=== PATIENT | female | born 1995 | race Caucasian/White ===

== ENCOUNTER → 2021-05-20 12:35 | Outpatient (CLI) | payer OTHER, SELFPAY ==
--- NOTE | 2021-05-20 12:38 | DI.US.S_ITS ---
PROCEDURE: US OB <= 14 WEEKS FETUS INDICATIONS: INITIAL DATING VIABILITY OUTSIDE/PRIOR DATING DATA: Last menstrual period (LMP): March 16, 2021. LMP-based estimated date of delivery (REHAN): December 21, 2021. First dating scan (date and location): May 20, 2021. Estimated date of delivery (REHAN) from first dating scan: December 19, 2021. TECHNIQUE: Real-time scanning was performed of the fetus and maternal pelvic organs, with image documentation. Endovaginal scanning was also performed to better visualize the fetus and maternal ovaries. COMPARISON: None. FINDINGS: Embryo: Single living intrauterine gestation with estimated sonographic gestational age of approximately 9 weeks and 4 days based off crown-rump length measurement of 2.8 cm. Normal yolk sac. No perigestational hemorrhage. Heart rate: 163 beats per minute Measurement variability in dating: +/- 4 weeks by LMP, +/- 7 days by mean sac diameter (use before 6 weeks gestation if crown-rump length not able to be measured), +/- 5 days by crown-rump length (up to 8 weeks 6 days gestation), +/- 7 days by crown-rump length (up to 13 weeks 6 days gestation). Maternal organs: Ovaries demonstrate a left corpus luteal cyst. No suspicious ovarian or adnexal mass lesions. IMPRESSION: Single living intrauterine gestation with estimated sonographic gestational age of approximately 9 weeks and 4 days based off crown-rump length measurement. This correlates with estimated date of delivery of December 19, 2021 Recommend routine second trimester anatomic screening survey. Dictated by: Ramiro Méndez M.D. on 05/20/2021 at 14:36 Approved by: Ramiro Méndez M.D. on 05/20/2021 at 14:39
[2021-05-20 14:37] LABS: Add Manual Diff / Slide Review NO; Basophils Absolute Auto 0 /uL (0-100); Basophils Percent Auto 0.2 % (0-2); Eosinophils Absolute Auto 0 /uL (0-450); Eosinophils Percent Auto 0.3 % (2-4); Hematocrit 38.3 % (36-46); Hemoglobin 13.2 g/dL (12.0-16.0); Lymphocytes Absolute Auto 1900 /uL (1100-4500); Lymphocytes Percent Auto 20.9 % (25-40); Mean Corpuscular HGB Conc 34.5 % (30-36); Mean Corpuscular Hemoglobin 30.5 PG (26-34); Mean Corpuscular Volume 88.6 fL (80-100); Monocytes Absolute Auto 500 /uL (0-900); Neutrophils Absolute Auto 6500 /uL (1500-7000); Neutrophils Percent Auto 72.6 % (50-75); Platelet Count 235 X10^3/uL (150-400); Red Blood Cell Count 4.32 X10^6/uL (4.0-5.2); Red Cell Distribution Width 12.9 % (11.6-14.8); White Blood Cell Count 8.9 X10^3/uL (4.5-11.0)
[2021-05-20 14:53] LABS: Appearance Urine UA CLEAR; Bilirubin Urine UA NEGATIVE (NEGATIVE); Color Urine UA YELLOW; Glucose Urine UA NEGATIVE (Negative); Ketones Urine UA NEGATIVE (NEGATIVE); Leukocyte Esterase Urine UA NEGATIVE (NEGATIVE); Nitrite Urine UA NEGATIVE (Negative); Occult Blood Urine UA NEGATIVE (Negative); Protein Urine UA NEGATIVE (Negative); Urobilinogen Urine UA 0.2 E.U./dL (0.2)
[2021-05-20 15:28] LABS: Hepatitis B Surface Antigen NEGATIVE s/c (NEGATIVE); Rubella Antibody IgG > 350.0 IU/mL (>15)
[2021-05-20 15:45] LABS: HIV 1 & 2 Ab/Ag 4th Gen Combo NEGATIVE (NEGATIVE); Hep C Virus Ab w/Reflex Quant NEGATIVE s/c (NEGATIVE)
[2021-05-21 04:51] LABS: RPR Screen Non Reactive (Non Reactive)
[2021-05-21 09:26] LABS: Varicella IgG Antibody <135 index (Immune >165)
== END ==
PROVIDERS: PCP Nurse Practitioner; Referring Provider Family Medicine; Visit Provider Family Medicine
DX: Z34.81 Encounter for supervision of other normal pregnancy, first trimester (principal); Z3A.09 9 weeks gestation of pregnancy
CPT/HCPCS: 36415; 76801; 76817; 80055; 81003; 86787; 86803; 86850; 86900; 86901; 87086; 87389

== ENCOUNTER → 2021-07-14 16:13 | Outpatient (CLI) | payer OTHER, SELFPAY ==
[2021-07-16 20:07] LABS: AFP, Serum 33.6 ng/mL (.); Calc Gestational Age Ultrasound (.); Estriol, Free 1.02 ng/mL (.); Inhibin A, Dimeric 92.05 pg/mL (.); Inhibin A, MoM See interpretation. (.); Maternal Ethnicity Caucasian (.); Maternal Weight 150 lbs (.); Number of Fetuses No (.); OSBR Risk 1 IN 10000 (.); Results Report (.); Test Results See interpretation. (.); hCG, MoM See interpretation. (.); hCG, Serum 15221 mIU/mL (.)
== END ==
PROVIDERS: PCP Nurse Practitioner; Referring Provider Family Medicine; Visit Provider Family Medicine
DX: Z34.92 Encounter for supervision of normal pregnancy, unspecified, second trimester (principal); Z3A.14 14 weeks gestation of pregnancy
CPT/HCPCS: 36415; 82105; 82677; 84702; 86336

== ENCOUNTER → 2021-08-05 09:16 | Outpatient (CLI) | payer OTHER, SELFPAY ==
--- NOTE | 2021-08-05 09:17 | DI.US.S_ITS ---
PROCEDURE: US OB >= 14 WEEKS FETUS INDICATIONS: ANATOMY OUTSIDE/PRIOR DATING DATA: Last menstrual period (LMP): 03/16/2021. LMP-based estimated date of delivery (REHAN): 12/21/2021. First dating scan (date and location): 05/20/2021. Estimated date of delivery (REHAN) from first dating scan: 12/19/2021. The calculations are made using the ultrasound REHAN of 12/19/2021. TECHNIQUE: Real-time scanning was performed of the fetus, with image documentation and biometric measurements. COMPARISON: [facility], , OB <= 14 WEEKS FETUS, 05/20/2021, 13:15. FINDINGS: General: A single living intrauterine gestation is present. Presentation: Breech. Placenta: Placental position is anterior , without previa. Amniotic fluid index: 14.6 cm, normal range is 5-24 cm. heart rate: 147 beats per minute. Maternal cervical canal: 4.0 cm long. Normal lower limit is 2.5 cm. biometrics: Biparietal diameter: 20 weeks 1 day Head circumference: 20 weeks 3 days Abdominal circumference: 20 weeks Femur length: 20 weeks Clinically estimated gestational age: 20 weeks 4 days Composite gestational age from present scan: 20 weeks 1 day Estimated weight and percentile: 329 g; 49th percentile. Anatomic survey: Neuro: Ventricles are non-dilated at less than 10 mm. Cisterna magna is normal at 3-11 mm. Cerebellum is normal in size and morphology. Nuchal skin fold: Normal at less than 6 mm between 14-21 weeks gestational age. Face: Nose and lips, facial profile are normal. Spine: No evidence for spina bifida. Heart: 4-chambered heart is present, with normal ventricular outflow tracts. Diaphragm: Diaphragm is intact. Stomach: Left-sided stomach is present. Kidneys: No hydronephrosis. Normal is less than 5 mm in 2nd trimester, less than 7 mm in 3rd trimester. Cord: 3-vessel cord has orthotopic insertion. Bladder: Normal in size. Extremities: All 4 extremities identified. IMPRESSION: 1. Single living IUP redemonstrated and interval growth is normal with estimated weight 49th percentile. 2. Normal anatomic survey. We strive to produce accurate, complete, and clear reports of imaging services. To assist us in improving patient care, this report was composed using standard report templates and voice recognition software. Therefore, it may contain abnormal punctuation, insertions and/or omissions. Occasional wrong-word or sound-alike substitutions may occur. Though we review the report and make efforts to correct it, we do recommend that the report be read carefully in proper context to recognize any text inaccuracies. Dictated by: Tristan DUNAWAY Interpreted: Alex Rubalcava MD on 08/05/2021 at 10:37 Transcribed by: ALBA on 08/05/2021 at 10:39 Approved by: Alex Rubalcava M.D. on 08/05/2021 at 11:30
== END ==
PROVIDERS: PCP Nurse Practitioner; Referring Provider Family Medicine; Visit Provider Family Medicine
DX: Z36.89 Encounter for other specified antenatal screening (principal); Z3A.20 20 weeks gestation of pregnancy
CPT/HCPCS: 76811

== ENCOUNTER → 2021-09-24 11:40 | Outpatient (CLI) | payer OTHER, SELFPAY ==
[2021-09-24 12:54] LABS: Hematocrit 39.6 % (36-46); Hemoglobin 13.1 g/dL (12.0-16.0)
[2021-09-24 14:03] LABS: GTT (PREG) 1 Hour PP 50gm Dose 101 mg/dL (76-139)
== END ==
LOC: RAD 11:41 → LAB 09-30 15:04
PROVIDERS: PCP Nurse Practitioner; Referring Provider Family Medicine; Visit Provider Family Medicine
DX: Z34.92 Encounter for supervision of normal pregnancy, unspecified, second trimester (principal); Z3A.26 26 weeks gestation of pregnancy
CPT/HCPCS: 36415; 82950; 85014; 85018; 86850; 86900; 86901

== ENCOUNTER → 2021-11-28 12:16 | Outpatient (CLI) | payer OTHER, SELFPAY ==
[2021-11-29 13:55] LABS: Strep Grp B PCR NEG for Grp B Strep
== END ==
PROVIDERS: PCP Nurse Practitioner; Visit Provider Family Medicine
DX: Z34.93 Encounter for supervision of normal pregnancy, unspecified, third trimester (principal); Z3A.36 36 weeks gestation of pregnancy
CPT/HCPCS: 87653

== ENCOUNTER 2021-11-28 12:58 | Observation (INO) | payer OTHER, SELFPAY ==
--- NOTE | 2021-11-28 13:05 | DI.US.S_ITS ---
PROCEDURE: US OB >= 14 WEEKS FETUS INDICATIONS: DEBORA OUTSIDE/PRIOR DATING DATA: Last menstrual period (LMP): 03/16/2021. LMP-based estimated date of delivery (REHAN): 12/21/2021 First dating scan (date and location): 05/20/2021. Estimated date of delivery (REHAN) from first dating scan: 12/19/2021 The calculations are made using the study generated REHAN of 12/19/2021. TECHNIQUE: Real-time scanning was performed of the fetus, with image documentation and biometric measurements. Endovaginal scanning: Not indicated COMPARISON: [facility], OB >= 14 WEEKS FETUS, 08/05/2021, 9:33. FINDINGS: General: A single living intrauterine gestation is present. Presentation: Vertex Placenta: Placental position is anterior, without previa. Amniotic fluid index: 6.6 cm, normal range is 5-24 cm. Single deepest vertical pocket is 2.4 cm. heart rate: 137 beats per minute. Maternal cervical canal: Not evaluated. IMPRESSION: Single live intrauterine gestation with fetus in vertex presentation. heart rate is 137 beats per minute. DEBORA equals 6.6 cm and is within normal limits. We strive to produce accurate, complete, and clear reports of imaging services. To assist us in improving patient care, this report was composed using standard report templates and voice recognition software. Therefore, it may contain abnormal punctuation, insertions and/or omissions. Occasional wrong-word or sound-alike substitutions may occur. Though we review the report and make efforts to correct it, we do recommend that the report be read carefully in proper context to recognize any text inaccuracies. Dictated by: Adrian Neely M.D. on 11/28/2021 at 13:48 Approved by: Adrian Neely M.D. on 11/28/2021 at 13:55
--- NOTE | 2021-11-28 14:15 | P.TNLD_ITS ---
Visit Information Visit Information Date of evaluation: 11/28/21 Primary OB Provider: Ana Rudolph Reason for Evaluation: Yes non-stress test Comments/Additional reasons for admission: 26-year-old at 36 weeks and 5 days sent to the center from clinic due to concern for low DEBORA from decreased fundal height. She denies contractions, leaking or bleeding and reports good movement. No headaches or edema. Vital Signs Vital Signs: Temperature 36.7? Blood pressure 148/114 heart rate 82, repeat blood pressure 140/91 heart rate 78 She was monitored for several hours in the center and blood pressures came down to 130s over 80s PFSH Medical History Asthma (~1999) Surgical History No significant past surgical history Family History Mother Cervical cancer Anxiety Grandfather Kidney failure Father Healthy adult Grandmother Smoker Emphysema of lung Grandfather Colon cancer Grandmother Healthy adult Sister Healthy adult Brother Healthy adult Social History marital status: number of children: 0 household members: spouse lives independently: Yes caregiver/support person: No housing: house pets and animals: Yes (1 dog 1 cat) education level: college occupational status: employed (High school Biology) current occupational exposures/hazards: No reshma/restorationist: Mormon special reshma needs: No travel history: over 6 months ago leisure activities: exercise other: yoga, cycling, walking dog, hiking, weight training seatbelt use: always helmet use: Yes do you feel safe at home: Yes Smoking Status: Never smoker alcohol intake: former (occasionally ) substance use type: does not use during the past year weight has: remained stable caffeine: Yes (1 cup of half and half per day) Type(s) of exercise: walking, regular exercise and yoga frequency: 3-4 times per week Objective Labs Result Diagrams: 11/28/21 13:42 11/28/21 13:35 Evaluation Evaluation Baseline heart rate: 130 Variability: Moderate (11-25) monitor accelerations: Present Monitor Decelerations: Variable (Two isolated variable decelerations which resolved with position change) Category of Tracing: Reactive Diagnosis, Plan/Disposition Final Diagnosis (1) 36 weeks gestation of : Status: Acute (2) Gestational hypertension: Status: Acute Plan/Disposition Plan: 26-year-old at 36 weeks and 5 days with elevated blood pressures concerning for gestational hypertension however blood pressures did come down without intervention. CBC, CMP and urine protein creatinine ratio were all normal, reassuring against preeclampsia. DEBORA is 6.6. NST reactive. Discussed gestational hypertension with the patient and her . Will have her return to the center later this week for repeat NST and serial blood pressures. She will begin home blood pressure monitoring and notify us if elevated. Discussed potential induction for gestational hypertension if indicated. Will plan to repeat labs in DEBORA in a week. OB Disposition: home
[2021-11-28 14:16] LABS: Add Manual Diff / Slide Review NO; Basophils Absolute Auto 0 /uL (0-100); Basophils Percent Auto 0.3 % (0-2); Eosinophils Absolute Auto 0 /uL (0-450); Eosinophils Percent Auto 0.2 % (2-4); Hematocrit 37.4 % (36-46); Hemoglobin 12.8 g/dL (12.0-16.0); Lymphocytes Absolute Auto 1800 /uL (1100-4500); Lymphocytes Percent Auto 21.4 % (25-40); Mean Corpuscular HGB Conc 34.4 % (30-36); Mean Corpuscular Hemoglobin 30.7 PG (26-34); Mean Corpuscular Volume 89.3 fL (80-100); Monocytes Absolute Auto 500 /uL (0-900); Monocytes Percent Auto 5.9 % (3-14); Neutrophils Absolute Auto 6200 /uL (1500-7000); Neutrophils Percent Auto 72.2 % (50-75); Platelet Count 187 X10^3/uL (150-400); Red Blood Cell Count 4.19 X10^6/uL (4.0-5.2); Red Cell Distribution Width 12.8 % (11.6-14.8); White Blood Cell Count 8.6 X10^3/uL (4.5-11.0)
[2021-11-28 15:08] LABS: Alanine Aminotransferase 21 IU/L (<35); Albumin 3.8 g/dL (3.5-5.0); Albumin Globulin Ratio 1.2 (1.0-2.8); Alkaline Phosphatase 116 U/L (38-126); Aspartate Aminotransferase 31 IU/L (14-36); BUN Creatinine Ratio 14.9 (6-22); Bilirubin Total 0.5 mg/dL (0.2-1.3); Blood Urea Nitrogen 11 mg/dL (7-17); Calcium 9.2 mg/dL (8.4-10.2); Carbon Dioxide 22 mmol/L (22-32); Chloride 105 mmol/L (98-107); Estimated Glomerular Filt Rate > 60 mL/min (>60); Globulin 3.3 g/dL (1.7-4.1); Glucose 89 mg/dL (70-100); HEMOLYSIS < 15 (0-50); Potassium 3.9 mmol/L (3.4-5.1); Sodium 136 mmol/L (137-145); Total Protein 7.1 g/dL (6.3-8.2)
[2021-11-28 16:18] LABS: Protein (Total) Urine Random 10 mg/dL (0-12); Protein Creatinine Ratio Urine 0.11 GRAM/24H
== END 2021-11-28 16:31 | disposition home or self-care (01) ==
PROVIDERS: Admitting Provider Family Medicine; PCP Nurse Practitioner; Referring Provider Family Medicine; Visit Provider Family Medicine
DX: O13.3 Gestational [pregnancy-induced] hypertension without significant proteinuria, third trimester (principal); Z3A.36 36 weeks gestation of pregnancy; Z34.93 Encounter for supervision of normal pregnancy, unspecified, third trimester
CPT/HCPCS: 36415; 59025; 59050; 76811; 80053; 82570; 84156; 85025; 87653; G0378; G0379

== ENCOUNTER 2021-12-01 14:58 | Outpatient (CLI) | payer OTHER, SELFPAY ==
--- NOTE | 2021-12-01 15:38 | PM.OBTRLD ---
Visit Information Visit Information Date of evaluation: 12/01/21 Primary OB Provider: Ana Rudolph Reason for Evaluation: Yes non-stress test non-stress test reason: hypertension/pre-eclampsia Comments/Additional reasons for admission: 26-year-old at 37 weeks and 1 day with gestational hypertension. Home blood pressures have been normal and she is without complaints. Vital Signs Vital Signs: Blood pressure 143/90, repeat blood pressure 133/87 [facility] Medical History Asthma (~1999) Surgical History No significant past surgical history Family History Mother Cervical cancer Anxiety Grandfather Kidney failure Father Healthy adult Grandmother Smoker Emphysema of lung Grandfather Colon cancer Grandmother Healthy adult Sister Healthy adult Brother Healthy adult Social History marital status: number of children: 0 household members: spouse lives independently: Yes caregiver/support person: No housing: house pets and animals: Yes (1 dog 1 cat) education level: college occupational status: employed (High school Biology) current occupational exposures/hazards: No reshma/sabianist: Nondenominational special reshma needs: No travel history: over 6 months ago leisure activities: exercise other: yoga, cycling, walking dog, hiking, weight training seatbelt use: always helmet use: Yes do you feel safe at home: Yes Smoking Status: Never smoker alcohol intake: former (occasionally ) substance use type: does not use during the past year weight has: remained stable caffeine: Yes (1 cup of half and half per day) Type(s) of exercise: walking, regular exercise and yoga frequency: 3-4 times per week Evaluation Evaluation Baseline heart rate: 130 Variability: Moderate (11-25) monitor accelerations: Present Monitor Decelerations: Absent Contraction Frequency (minutes): 3 Category of Tracing: Reactive Diagnosis, Plan/Disposition Final Diagnosis (1) 37 weeks gestation of : Status: Acute (2) Gestational hypertension: Status: Acute Plan/Disposition Plan: 26-year-old at 37 weeks and 1 day gestation with concern for gestational hypertension. Preeclampsia labs were all normal earlier this week and blood pressure came down spontaneously. Initial blood pressure was mildly elevated today however repeat improved. Home blood pressures have been normal. Follow-up in 3 days for repeat NST, DEBORA in clinic visit. OB Disposition: home
== END 2021-12-01 16:11 | disposition home or self-care (01) ==
LOC: LABOR 16:03 → OB 12-06 07:59
PROVIDERS: PCP Nurse Practitioner; Referring Provider Family Medicine; Visit Provider Family Medicine
DX: O13.3 Gestational [pregnancy-induced] hypertension without significant proteinuria, third trimester (principal); Z3A.37 37 weeks gestation of pregnancy
CPT/HCPCS: 59025; G0378; G0379

== ENCOUNTER 2021-12-05 10:17 | Outpatient (CLI) | payer OTHER, SELFPAY ==
--- NOTE | 2021-12-05 10:39 | DI.US.S_ITS ---
PROCEDURE: US OB FOLLOW UP INDICATIONS: DEBORA, EFW OUTSIDE/PRIOR DATING DATA: Last menstrual period (LMP): March 16, 2021. LMP-based estimated date of delivery (REHAN): December 21, 2021. First dating scan (date): May 20, 2021. Estimated date of delivery (REHAN) from first dating scan: December 19, 2021. TECHNIQUE: Real-time scanning was performed of the fetus, with image documentation and biometric measurements. COMPARISON: [facility], , OB >= 14 WEEKS FETUS, 08/05/2021, 9:33. FINDINGS: General: A single living intrauterine gestation is present. Presentation: Vertex. Placenta: Placental position is anterior , without previa. Amniotic fluid index: 7.4 cm, normal range is 5-24 cm. Single deepest vertical pocket is 3.9 cm. heart rate: 141 beats per minute. Maternal cervical canal: Not seen biometrics: Biparietal diameter: 9.4 cm Head circumference: 33.2 cm Abdominal circumference: 29.2 cm Femur length: 6.8 cm Clinically estimated gestational age: 38 weeks Composite gestational age from present scan: 36 weeks Estimated weight and percentile: 2477 g +/-376 g; 3 percent Umbilical artery S/D: 3.1, 2.8 Other: Not applicable. IMPRESSION: Live single intrauterine gestation as detailed above. We strive to produce accurate, complete, and clear reports of imaging services. To assist us in improving patient care, this report was composed using standard report templates and voice recognition software. Therefore, it may contain abnormal punctuation, insertions and/or omissions. Occasional wrong-word or sound-alike substitutions may occur. Though we review the report and make efforts to correct it, we do recommend that the report be read carefully in proper context to recognize any text inaccuracies. Dictated by: Carlos Stevens M.D. on 12/05/2021 at 12:56 Approved by: Carlos Stevens M.D. on 12/05/2021 at 13:00
[2021-12-05 10:48] VITALS: BP 138/85; PULSE 86; RESP 20; TEMP 36.4
[2021-12-05 11:10] LABS: Add Manual Diff / Slide Review NO; Basophils Absolute Auto 0 /uL (0-100); Basophils Percent Auto 0.4 % (0-2); Eosinophils Absolute Auto 0 /uL (0-450); Eosinophils Percent Auto 0.2 % (2-4); Hematocrit 38.2 % (36-46); Lymphocytes Absolute Auto 1500 /uL (1100-4500); Lymphocytes Percent Auto 19.3 % (25-40); Mean Corpuscular Hemoglobin 30.3 PG (26-34); Mean Corpuscular Volume 89.2 fL (80-100); Monocytes Absolute Auto 600 /uL (0-900); Monocytes Percent Auto 7.3 % (3-14); Neutrophils Absolute Auto 5800 /uL (1500-7000); Neutrophils Percent Auto 72.8 % (50-75); Platelet Count 191 X10^3/uL (150-400); Red Blood Cell Count 4.28 X10^6/uL (4.0-5.2); Red Cell Distribution Width 12.8 % (11.6-14.8)
[2021-12-05 11:23] LABS: Creatinine Urine Random 221.7 mg/dL; Protein (Total) Urine Random 10 mg/dL (0-12); Protein Creatinine Ratio Urine 0.04 GRAM/24H
[2021-12-05 11:24] LABS: Alanine Aminotransferase 18 IU/L (<35); Albumin 3.7 g/dL (3.5-5.0); Albumin Globulin Ratio 1.2 (1.0-2.8); Alkaline Phosphatase 110 U/L (38-126); Aspartate Aminotransferase 25 IU/L (14-36); BUN Creatinine Ratio 14.7 (6-22); Bilirubin Total 0.5 mg/dL (0.2-1.3); Blood Urea Nitrogen 11 mg/dL (7-17); Calcium 9.2 mg/dL (8.4-10.2); Carbon Dioxide 23 mmol/L (22-32); Chloride 105 mmol/L (98-107); Estimated Glomerular Filt Rate > 60 mL/min (>60); Globulin 3.2 g/dL (1.7-4.1); Glucose 87 mg/dL (70-100); HEMOLYSIS < 15 (0-50); Sodium 134 mmol/L (137-145); Total Protein 6.9 g/dL (6.3-8.2)
== END 2021-12-05 11:00 | disposition home or self-care (01) ==
LOC: LABOR 10:48 → OB 12-06 08:03
PROVIDERS: PCP Nurse Practitioner; Referring Provider Family Medicine; Visit Provider Family Medicine
DX: O13.3 Gestational [pregnancy-induced] hypertension without significant proteinuria, third trimester (principal); Z3A.37 37 weeks gestation of pregnancy
CPT/HCPCS: 36415; 59025; 76816; 80053; 82570; 84156; 85025; G0378; G0379

== ENCOUNTER 2021-12-05 17:50 | Inpatient (IN) | payer OTHER, SELFPAY ==
[2021-12-05 19:11] VITALS: BP 138/98
[2021-12-05 19:23] LABS: COVID19 -Nasal RAPID Negative (Negative)
[2021-12-05] MEDS: DINOPROSTONE VAG (CERVIDIL) 10 MG VAG (19:49)
[2021-12-06] MEDS: LACTATED RINGERS 1,000 ML 100 ML IV ×3 (03:14→18:32)
--- NOTE | 2021-12-06 06:46 | P.HPOB_ITS ---
OB HPI Date/Time Date of admission: 12/05/21 Date Patient Seen: 12/06/21 History of Present Condition Chief complaint: Gestational hypertension REHAN Calculator Estimated Delivery Date Method Current WG Current Estimate 12/21/21 LMP (Certain) 37w 6d : 1 Para: 0 Narrative: 26 year old at 37+6 weeks gestation here for induction due to gestational hypertension and growth restriction. Gestational hypertension diagnosed at 36 weeks with normal pre-eclampsia labs. US yesterday was significant for EFW 3% and umbilical artery dopplers S/D 3.1 and 2.8. Pre-eclampsia labs are normal and she has been without headaches, visions changes or RUQ pain. She has had trace edema. was uncomplicated until diagnosis of gestational hypertension. She presented last night for cervical ripening with Cervidil. Cervidil was removed at 4 AM due to tachysystole. She has continued to contract regularly since removal and rates pain 4/10. Denies leaking or bleeding. care: good care, initiated at week # (10), number of visits (11) and pounds weight gain (30) Dating criteria OB: LMP confirmed by 1st trimester US Ultrasounds: normal mid trimester US and abnormal US findings Abnormal ultrasound findings: US 12/05/21 with EFW 3rd percentile and UA dopplers S/D 3.1 and 2.8. Obstetrical complications: gestational diabetes and growth restriction Medical complications OB: none Indications Indication for induction OB: gestational HTN/pre-eclampsia and intra-uterine growth restriction Preadmission Labs Last OB Lab Results: Blood Type O Negative 12/05/21 18:45 12/05/21 Antibody Screen Positive 12/05/21 18:45 12/05/21 Hematocrit 38.2 % (36-46) 12/05/21 11:00 12/05/21 Hemoglobin 13.0 g/dL (12.0-16.0) 12/05/21 11:00 12/05/21 Hepatitis B Surface Antigen Negative s/c (NEGATIVE) 05/20/21 13:46 05/20/21 Hepatitis C Antibody Negative s/c (NEGATIVE) 05/20/21 13:46 05/20/21 Rubella Antibody > 350.0 IU/mL (>15) 05/20/21 13:46 05/20/21 Varicella-Zoster IgG Antibody <135 index (Immune >165) L 05/20/21 13:46 05/20/21 Glucose 1 Hour 101 mg/dL (76-139) 09/24/21 12:45 09/24/21 Group B Streptococcus (PCR) Neg for grp b strep 11/28/21 12:16 11/28/21 -: Chlamydia screen: negative, Gonorrhea screen: negative and Urine: negative -: PAP smear: Normal Genetic Screens: Quad screen: Normal External Labs -: Urine: negative Evaluation Evaluation Baseline heart rate: 130 Variability: Moderate (11-25) monitor accelerations: Present Monitor Decelerations: Absent Contraction Frequency (minutes): 2 Status: Category l Dilation (cm): 1 Effacement (%): 50 Dilation: 1-2 cm Effacement: 40-50% station: 0 Position of cervix: mid Consistency: medium Mendez score: 6 PFSH Medical History Asthma (~2000) Surgical History No significant past surgical history Family History Mother Cervical cancer Anxiety Grandfather Kidney failure Father Healthy adult Grandmother Smoker Emphysema of lung Grandfather Colon cancer Grandmother Healthy adult Sister Healthy adult Brother Healthy adult Social History marital status: number of children: 0 household members: spouse lives independently: Yes caregiver/support person: No housing: house pets and animals: Yes (1 dog 1 cat) education level: college occupational status: employed (High school Biology) current occupational exposures/hazards: No reshma/lutheran: Rastafarian special reshma needs: No travel history: over 6 months ago leisure activities: exercise other: yoga, cycling, walking dog, hiking, weight training seatbelt use: always helmet use: Yes do you feel safe at home: Yes Smoking Status: Never smoker alcohol intake: former (occasionally ) substance use type: does not use during the past year weight has: remained stable caffeine: Yes (1 cup of half and half per day) Type(s) of exercise: walking, regular exercise and yoga frequency: 3-4 times per week Meds Home Medications and Allergies Home Medications Medication Instructions Recorded Confirmed Type prenat.vits,moisés,sld-oaat-otvzk 1 tab PO DAILY 05/23/21 12/05/21 History Double Electric Breast Pump and #1 ea 10/17/21 12/05/21 Rx supplies miscellaneous medical supply #1 ea 10/17/21 12/05/21 Rx Allergies Allergy/AdvReac Type Severity Reaction Status Date / Time No Known Drug Allergies Allergy Unverified 12/05/21 11:56 Review of Systems Review of Systems ROS: Yes All systems reviewed with the patient and are negative except as otherwise documented OB Exam Narrative Exam Narrative: Temperature 36.5? blood pressure 153/91 heart rate 78, Repeat blood pressure 144/82 heart rate 61 HENMT Head: normal to inspection Mouth: oral mucosae normal Eyes General: appearance normal, both eyes and all related structures Resp Effort & Inspection: normal respiratory effort Auscultation: clear to auscultation bilaterally Cardio Rate: regular rate Rhythm: regular rhythm Heart Sounds: S1 normal and S2 normal Extremities Lower extremity: Yes normal to inspection and edema (trace bilateral) DTR's: Rt Patellar: 3+ and Lt Patellar: 3+ Presentation: vertex Estimated Weight (lbs): 5 Objective Labs Labs: Laboratory Results - last 24 hr 12/05/21 12/05/21 18:45 18:45 SARS-CoV-2 (PCR) Negative Blood Type O Negative Antibody Screen Positive Antibody Identification Anti-D Assessment and Plan Assessment and Plan Assessment and Plan narrative: 26 year old at 37 weeks and 6 days gestation here for induction due to gestational hypertension without pre-eclampsia and IUGR. GBS negative, COVID neg, s/p Cervidil last night. Blood pressures remain out of the severe range. Labetalol is ordered for severe range pressures if needed (>160/110). Cervix remains unfavorable this morning however she is erica regularly. Recommended felix bulb placement for mechanical cervical ripening. A 16 Nauruan catheter was inserted into the cervix and the balloon filled with 60 ml of saline. Patient experienced cramping but overall tolerated placement well. Counseled patient and that the balloon will remain in place until it falls out, rupture of membranes occurs or 12 hours passes. Will recheck cervix in 4 hours or sooner if needed.
--- NOTE | 2021-12-06 13:05 | PM.OBPNLAB ---
Pain Control Pain control: tolerating well Comments: She is getting more uncomfortable with contractions but coping well, rates pain 6/10. Pelvic Exam Dilation (cm): 5 Effacement (%): 80 station: 0 Comments: Garcia bulb in vagina, removed Contractions Contraction frequency (min): 3 Status status: Category l Heart Rate Baseline: 135 Monitor Accelerations: Present Monitor Decelerations: Absent Monitor Variability: Moderate Assessment and Plan Assessment: active labor Plan: continuous present management Comments: 26-year-old at 37 weeks and 6 days gestation here for induction due to gestational hypertension and growth restriction. She is progressing well spontaneously after Cervidil and Garcia bulb for cervical ripening. Continue expected management. Blood pressures have been out of the severe range and she is without symptoms of pre-eclampsia. Will re-evaluate in two hours, consider AROM or pitocin if not progressing.
--- NOTE | 2021-12-06 17:01 | PM.OBPNLAB ---
Date/Time Date Patient Seen: 12/06/21 Time Patient Seen: 17:01 Pain Control Pain control: tolerating well Pelvic Exam Dilation (cm): 6 Effacement (%): 80 station: 0 Amniotic membrane status: Ruptured (AROM small amount of clear fluid) Contractions Contraction frequency (min): 4 Status status: Category l Heart Rate Baseline: 140 Monitor Accelerations: Present Monitor Decelerations: Absent Monitor Variability: Moderate Assessment and Plan Assessment: active labor Plan: continuous present management Comments: 26 year old at 37+6 weeks undergoing induction for gestational hypertension and IUGR. She has been progressing spontaneously though contractions spaced out. AROM performed for augmentation with a small amount of clear fluid. She continues to cope very well. Continue expectant management.
[2021-12-06] MEDS: ePHEDrine 50 MG/ML VIAL IV (20:11)
--- NOTE | 2021-12-06 20:25 | PM.OBPNLAB ---
Date/Time Date Patient Seen: 12/06/21 Time Patient Seen: 20:25 Pain Control Pain control: epidural Comments: She feels rectal pressure with contractions but not in between. Pelvic Exam Dilation (cm): 7 Effacement (%): 100 station: 0 Amniotic membrane status: Ruptured Contractions Monitor mode: External Contraction frequency (min): 6 Status status: Category ll Heart Rate Baseline: 130 Monitor Accelerations: Present Monitor Decelerations: Late Monitor Variability: Moderate Assessment and Plan Assessment: active labor Comments: 26-year-old at 37 weeks and 6 days undergoing induction for gestational hypertension and IUGR. She received an epidural then began having recurrent late decelerations with each contraction. Blood pressure throughout the day has been 130s to 140s over 80s however after epidural placement blood pressure was 110s/50s. She was given a fluid bolus as well as ephedrine x2 with blood pressure improvement to 130s over 60s however late decelerations continued. Dr. Kelsey was consulted for possible delivery if recurrent late decelerations do not improve with continue blood pressure support.
--- NOTE | 2021-12-06 22:38 | PM.OBPNLAB ---
Date/Time Date Patient Seen: 12/06/21 Time Patient Seen: 22:38 Pain Control Pain control: epidural Pelvic Exam Dilation (cm): 7 Effacement (%): 100 station: 0 Amniotic membrane status: Ruptured Contractions Monitor mode: External Contraction frequency (min): 5 Status status: Category ll Heart Rate Baseline: 130 Monitor Accelerations: Present Monitor Decelerations: Late (Not recurrent) Assessment and Plan Comments: 26-year-old at 37 weeks and 6 days undergoing induction for gestational hypertension and IUGR.? Late decelerations largely resolved after blood pressure resuscitation and position change. After most recent exam and position change she had another late deceleration down to the 90s with slow return to baseline over 3 minutes. Moderate variability and accelerations returned. SVE remains unchanged after several hours and contractions have also spaced to 4-6 minutes apart. Recommended initiation of Pitocin with caution given lack of cervical change. Patient is in agreement with a trial of Pitocin. She understands that baby may not tolerate it. The OR is aware of the potential for section and Dr. Kelsey is also available.
[2021-12-06] MEDS: OXYTOCIN PREMIX 30 UNIT/500 ML PLAST..BAG IV (22:52)
--- NOTE | 2021-12-06 23:54 | PM.OBPNLAB ---
Date/Time Date Patient Seen: 12/07/21 Time Patient Seen: 00:25 Pain Control Pain control: epidural Comments: Patient denies complaints. She has intermittent rectal pressure with contractions. Pelvic Exam Dilation (cm): 9 Effacement (%): 100 station: +1 Amniotic membrane status: Ruptured Contractions Monitor mode: External Contraction frequency (min): 5 Status status: Category ll Heart Rate Baseline: 130 Monitor Accelerations: Present Monitor Decelerations: Late Assessment and Plan Assessment: active labor Plan: Comments: 26-year-old at 38 weeks gestation with gestational hypertension andIUGR. Labor had stalled for over 6 hours so Pitocin started at 1 millunit. Baby did not tolerate Pitocin well however cervix did change. She had a rim of cervix and an attempt was made to push past it however unsuccessful. Infant continues to have late decelerations on minimal Pitocin. Discussed continued expectant management versus primary section. The patient and her are in agreement with primary section for intolerance of labor. Risks reviewed including risk of bleeding, infection or injury to surrounding organs (bladder, bowel, ureters). Consent signed. All questions answered. Patient is accepting of blood transfusion if indicated. Will give 2 g of Ancef and 500 mg of azithromycin prior to surgery. Dr. Kelsey is aware and coming in.
--- NOTE | 2021-12-07 00:32 | PM.PREOP ---
Pre-operative Note COVID-19 COVID-19 status: Negative Result date/Date tested (Pos, Neg/Pending): 12/05/21 Interval Note History & Physical reviewed/Exam performed by Physician: Yes Changes to H&P: No
--- NOTE | 2021-12-07 00:37 | PM.CN ---
History of Present Illness Consult details Date Patient Seen: 12/07/21 Time Patient Seen: 00:38 Chief complaint: Gestational hypertension Reason for consult: Decision for operative delivery by Requesting provider: Ana Rudolph Narrative: Called to evaluate labor progress and decision for section due to secondary arrest and intolerance of labor Meds Home Medications and Allergies Home Medications Medication Instructions Recorded Confirmed Type prenat.vits,moisés,wdk-fngk-xlcxy 1 tab PO DAILY 05/23/21 12/05/21 History Double Electric Breast Pump and #1 ea 10/17/21 12/05/21 Rx supplies miscellaneous medical supply #1 ea 10/17/21 12/05/21 Rx Allergies Allergy/AdvReac Type Severity Reaction Status Date / Time No Known Drug Allergies Allergy Unverified 12/05/21 11:56 [facility] Medical History Asthma (~1999) Surgical History No significant past surgical history Family History Mother Cervical cancer Anxiety Grandfather Kidney failure Father Healthy adult Grandmother Smoker Emphysema of lung Grandfather Colon cancer Grandmother Healthy adult Sister Healthy adult Brother Healthy adult Social History marital status: number of children: 0 household members: spouse lives independently: Yes caregiver/support person: No housing: house pets and animals: Yes (1 dog 1 cat) education level: college occupational status: employed (High school Biology) current occupational exposures/hazards: No reshma/taoist: Roman Catholic special reshma needs: No travel history: over 6 months ago leisure activities: exercise other: yoga, cycling, walking dog, hiking, weight training Safety seatbelt use: always helmet use: Yes do you feel safe at home: Yes Tobacco & Substance Use Smoking Status: Never smoker alcohol intake: former (occasionally ) substance use type: does not use Diet and Exercise during the past year weight has: remained stable caffeine: Yes (1 cup of half and half per day) Type(s) of exercise: walking, regular exercise and yoga frequency: 3-4 times per week Assessment & Plan Assessment and plan (1) intolerance to labor, delivered, current hospitalization: Status: Acute Plan Course and conduct of labor reviewed with Dr. Rudolph and concur with her decision to proceed with primary section due to intolerance of labor in the active phase of labor. Strongly suspect umbilical cord entanglement. Time Spent With Patient Time with patient: less than 30 minutes Critical Care time: I spent a total of [] minutes of critical care time on this patient's care today; this time is exclusive of procedural time.
[2021-12-07] MEDS: AZITHROMYCIN 500 MG in DEXTROSE 5% IN WATER 250 ML 250 MG IV (00:54)
--- NOTE | 2021-12-07 01:16 | SUR.OPER ---
Supine on Padded OR bed, head on pillow, safety belt at thigh, arms secured on padded arm boards at <90 degrees abduction. Bump under right buttock. Legs uncrossed with pillow under knees, gel pad to heels, tape over blanket to lower legs.
[2021-12-07] MEDS: CEFAZOLIN 2 GM/20 ML SYRINGE IV (01:25)
[2021-12-07] MEDS: ACETAMINOPHEN IV 1,000 MG/100 ML VIAL 400 MG IV (01:31)
[2021-12-07] MEDS: LACTATED RINGERS 1,000 ML 100 ML IV (01:37)
--- NOTE | 2021-12-07 01:40 | SUR.OPER ---
Addendum entered by Damian Camarillo R.N. 12/07/21 01:46: heart tones prior to case at 141 Original Note: viable baby boy born at 0125, placenta delivered at 0128, cord blood and placenta delivered to OB by OB CORI Duong
--- NOTE | 2021-12-07 02:15 | PM.OBCS.1 ---
Operative Date/Time/Diagnoses Date of procedure: 12/07/21 Time of procedure: 00:55 Pre-op diagnosis: Intrauterine gestation, hsu, vertex, 38+0 weeks EGA Intrauterine growth restriction intolerance of labor, delivered Post-op diagnosis: same Procedure & Clinicians Procedure: Primary Section, Low Transverse Cervical Same procedure as scheduled: Yes Indications: Lisa is a 26 yo REHAN [birth year][address] Ana Rudolph at 37+5 weeks EGA for ripening/induction due to IUGR with an estimated weight by US at the 3rd percentile who progressed into the active phase but experienced repetitive decelerations. After discussion with the patient and her , Dr. Rudolph and the family have decided to proceed with delivery via primary section ddue to the aforementioned indications Surgeon: Luis Miguel Kelsey Insurance Claims Analyst: Ana Rudolph Reason for Insurance Claims Analyst: Retraction and the timely, safe, and effective performance of this complex surgical procedure. Anesthesia Type: Epidural Operative Notes Findings: Viable male infant, Apgars 9/9 weight 2342 gms. (5lb. 2.6oz.), delivered from the vertex presentation with marked caput and moulding noted. Normal gravid anatomy. Closure Type: primary Specimen(s): cord blood Intraoperative meds administered: Acetaminophen, Duramorph and Ketorolac Estimated Blood Loss (mL): 600 Blood products transfused: none Procedure in detail: With the patient under satisfactory spinal block anesthesia in the dorsal supine position, the abdomen was prepped and draped in the usual fashion for section following insertion of a Garcia catheter.? A pre-surgical safety time-out was then taken in accordance with [facility] Main OR protocols.? A 15 cm transverse incision was then made along the line of her old scar and carried down to the deep fascia.? The deep fascia was incised transversely, the rectus abdomini bluntly, and the peritoneum was entered sharply.? A bladder flap was created with a transverse incision of the peritoneum overlying the lower uterine segment and the bladder advanced.? The lower uterine segment was then incised transversely and the amniotic cavity entered atraumatically.? Clear amniotic fluid was noted and the infant was delivered from vertex presentation without difficulty.? No cord entanglement was noted. Delayed cord clamping was performed and once the umbilical cord was clamped and cut, cord blood sample was obtained for routine studies.? The placenta was then removed from the endometrial cavity with uterine massage and gentle traction on the umbilical cord.? The endometrial cavity was found to be empty with use of a sloppy wet lap followed by dry lap.? All redundant membranes were removed and the endocervical canal dilated with a ring forcep.? Ring forceps were used to secure both angles and the hysterotomy was closed 1st with #1 Chromic in a running interlocking stitch initiated both angles and tying separately near the midline.? A 2nd layer of #1 Chromic was used in a running interlocking imbricating stitch to over sew the 1st.? With no points of bleeding noted in the pelvis, the bladder flap was then closed with 2-0 Vicryl and the anterior peritoneum was closed in a similar fashion.? The fascial incision was carefully inspected and the deep fascia was then closed with #1 Vicryl in a running stitch initiated at the each angle and tied separately near the midline.? Subcutaneous tissues brought together was 2-0 Vicryl in a running stitch and skin edges were reapproximated with 4-0 Monocryl in a running subcutaneous stitch.? Mastisol was applied to the skin and steri-strips were applied to the incision for reinforcement and an AquaCel dressing was applied.? Patient was then transferred to recovery room after having tolerated the procedure well. Complications: none [place] Baby 1: Infant Gender: Male Presentation: vertex Position: Left Occiput Anterior Placental Delivery Description: Spontaneous and Expressed Cord Vessel Description: 3 Vessels score (1 min): 9 score (5 min): 9 weight: 5 lb 2.612 oz Post-operative Condition: stable Disposition: PACU Aftercare: routine postop
[2021-12-07 02:20] VITALS: BP 135/87; PULSE 80; RESP 16; TEMP 37.1; O2SAT 98
[2021-12-07 02:25] VITALS: BP 141/94; PULSE 89; RESP 15; TEMP 37.1; O2SAT 99
[2021-12-07 02:32] VITALS: BP 142/79; PULSE 74; RESP 16; TEMP 36.8; O2SAT 98
[2021-12-07] MEDS: OXYCODONE IR 5 MG TABLET PO (02:34)
[2021-12-07 02:36] VITALS: BP 136/80; PULSE 71; RESP 14; TEMP 36.8; O2SAT 98
[2021-12-07] MEDS: KETOROLAC 30 MG/ML VIAL IV ×2 (08:04→16:11)
[2021-12-07] MEDS: PRENATAL VIT,CALC/IRON/FOLIC 1 TABLET 1 TAB PO (08:55)
[2021-12-07] MEDS: DOCUSATE 100 MG CAPSULE 200 MG PO (08:55)
--- NOTE | 2021-12-07 10:58 | P.PNOB_ITS ---
Subjective - OB Subjective Patient comments: no complaints, pain well controlled and tolerating diet baby status: doing well feeding status: breast and bottle feeding Narrative: Patient is doing well this morning after primary . Vaginal bleeding is light and pain well controlled. She has not yet been up out of bed but she has eaten. has been having some difficulty with low blood sugars so is being suppl emented with formula. She is also putting him to breast. Date Patient Seen: 12/07/21 Time Patient Seen: 10:40 Exam Vital Signs (past 8 hours): Oxygen Delivery Method Room Air Oxygen Flow Rate 0 Temperature 98.0? blood pressure 135/76 heart rate 80 respirations 18 Narrative Exam Narrative: General: Awake and alert, no acute distress. HEENT: NCAT, EOMI, moist oral mucosa CV: Regular rate and rhythm, no murmurs, rubs or gallops Lungs: CTAB, no wheezes, rales, or rhonchi Abdomen: Aquacel dressing intact with minimal drainage. Soft, nontender; bowel tones active; uterus firm 1 cm below umbilicus. Extremities: Warm, trace edema bilaterally Neuro: 3+ patellar reflexes Assessment & Plan Assessment and Plan (1) Status post section: Status: Acute (2) intolerance to labor, delivered, current hospitalization: Status: Acute (3) 38 weeks gestation of : Status: Acute (4) Gestational hypertension: Status: Acute Plan day: 0 plan OB: routine care Comments: 26-year-old after primary section for arrest of labor and intolerance of labor. She is doing well this morning. Tolerating a diet. Plan will be to get up out of bed soon and removed the Garcia catheter. Encourage ambulation. Blood pressures are well controlled without medication today. Will repeat CBC and CMP in the morning. Time Spent With Patient Time: Total time spent is greater than 50% in coordination of care (as documented) at patient's floor/unit and/or counseling patient: Time with patient: 15-24 minutes
--- NOTE | 2021-12-07 11:15 | PATH_ITS ---
[facility] Accession Number: [id number] No. of containers..01 Tissue . 01 Material submitted: . placenta - PLACENTA . 02 Diagnosis: Placenta, Delivery: Placenta parenchyma: Weight: 322 grams. Chorionic villi demonstrate variable maturation. Mild inter and intravillous fibrin is present. Patchy calcifications are present. No definite villitis identified. . Umbilical cord: Eccentrically inserted 5 cm from the placental disc margin. 27 cm in length. Three vessels present. No funisitis identified. . Membranes: Ruptured 2.0 cm from the placental disc margin. Focal, mild chorioamnionitis present. [facility] 12/12/2021 1406 Local . 02 Electronically signed: . Josephine Agrawal MD, Pathologist NPI- [id number] . 01 Gross description: . Received in a container of formalin labeled with the patient's name only is a 17.0 x 16.0 x 2.0 cm discoid placenta, which has an eccentric inserted umbilical cord located 5.0 cm from the nearest margin. The umbilical cord measures 27.0 cm in length and has an average diameter of 1.0 cm. The umbilical cord is pablo-white and has a normal spiral pattern. The umbilical cord is sectioned and has trivascular architecture on cut surfaces. The external membranes are pablo-pink, semi-translucent and are ruptured 2.0 cm from the nearest margin. The trimmed weight of the placenta is 322 grams. The surface is covered by dark blue smooth glistening membranes with a coarse and fine vessels ramifying the surface normally. The maternal surface is complete, dark red and lobulated with normal appearing cotyledons. There is dark red spongy parenchyma on cut surfaces and no intramural masses or lesions are identified. Test Manager sections are submitted as follows: . A1: Proximal and distal umbilical cord and external membranes. A2-A3: Random central placental disc. ([id number]) /[facility] 12/08/2021 1840 Local . 02 Pathologist provided ICD-10: O43.90 . 02 CPT . 543095 Specimen Comment: A courtesy copy of this report has been sent to [facility] Pathology Performed at: 01 [facility] Cyt[facility] [address] [place] [address], [place], [place] [id number] MD Jacques Mckeon MD Phone: [phone] Performed at: 02 [facility] [address] [place], [place] [id number] MD Patsy Drummond MD Phone: [phone]
[2021-12-07] MEDS: ACETAMINOPHEN 325 MG TABLET 650 MG PO (15:04)
[2021-12-08] MEDS: ACETAMINOPHEN 325 MG TABLET 650 MG PO ×4 (01:07→20:33)
[2021-12-08] MEDS: OXYCODONE IR 5 MG TABLET PO ×5 (01:08→22:32)
[2021-12-08] MEDS: IBUPROFEN 600 MG TABLET PO ×4 (01:09→20:32)
[2021-12-08] MEDS: LANOLIN OINT 7 GM 1 APPLIC TOP (01:10)
[2021-12-08 07:18] LABS: Add Manual Diff / Slide Review NO; Basophils Absolute Auto 100 /uL (0-100); Basophils Percent Auto 0.6 % (0-2); Eosinophils Absolute Auto 100 /uL (0-450); Eosinophils Percent Auto 0.7 % (2-4); Hematocrit 32.3 % (36-46); Hemoglobin 10.9 g/dL (12.0-16.0); Lymphocytes Absolute Auto 2000 /uL (1100-4500); Lymphocytes Percent Auto 15.9 % (25-40); Mean Corpuscular HGB Conc 33.7 % (30-36); Mean Corpuscular Hemoglobin 30.6 PG (26-34); Mean Corpuscular Volume 90.8 fL (80-100); Monocytes Absolute Auto 900 /uL (0-900); Monocytes Percent Auto 6.9 % (3-14); Neutrophils Absolute Auto 9500 /uL (1500-7000); Neutrophils Percent Auto 75.9 % (50-75); Platelet Count 153 X10^3/uL (150-400); Red Blood Cell Count 3.56 X10^6/uL (4.0-5.2); Red Cell Distribution Width 12.7 % (11.6-14.8); White Blood Cell Count 12.4 X10^3/uL (4.5-11.0)
[2021-12-08 07:37] LABS: Alanine Aminotransferase 16 IU/L (<35); Albumin 2.9 g/dL (3.5-5.0); Albumin Globulin Ratio 1.1 (1.0-2.8); Alkaline Phosphatase 92 U/L (38-126); Aspartate Aminotransferase 29 IU/L (14-36); BUN Creatinine Ratio 18.6 (6-22); Bilirubin Total 0.3 mg/dL (0.2-1.3); Blood Urea Nitrogen 13 mg/dL (7-17); Carbon Dioxide 27 mmol/L (22-32); Chloride 107 mmol/L (98-107); Estimated Glomerular Filt Rate > 60 mL/min (>60); Globulin 2.7 g/dL (1.7-4.1); Glucose 81 mg/dL (70-100); HEMOLYSIS 16 (0-50); Potassium 4.2 mmol/L (3.4-5.1); Sodium 136 mmol/L (137-145); Total Protein 5.6 g/dL (6.3-8.2)
--- NOTE | 2021-12-08 08:35 | P.PNOB_ITS ---
Subjective - OB Subjective Patient comments: no complaints, pain well controlled, tolerating diet and flatus present baby status: doing well [place] feeding status: other (Breast and SNS) Date Patient Seen: 12/08/21 Time Patient Seen: 08:00 Exam Vital Signs (past 8 hours): Oxygen Delivery Method Room Air Oxygen Flow Rate 0 Temperature 98.3? blood pressure 128/82 heart rate 97 Narrative Exam Narrative: General: Resting comfortably in bed with infant on chest HEENT: NCAT, EOMI, moist oral mucosa CV: Regular rate and rhythm, no murmurs, rubs or gallops Lungs: CTAB, no wheezes, rales, or rhonchi Abdomen:? Aquacel dressing intact with minimal drainage.? Soft, nontender; bowel tones active; uterus firm 1 cm below umbilicus. Extremities: Warm, trace edema bilaterally Neuro:? 3+ patellar reflexes Objective Labs Result Diagrams: 12/08/21 07:01 12/08/21 07:01 Labs: Laboratory Results - last 24 hr 12/08/21 12/08/21 07:01 07:01 WBC 12.4 H RBC 3.56 L Hgb 10.9 L Hct 32.3 L MCV 90.8 MCH 30.6 MCHC 33.7 RDW 12.7 Plt Count 153 Neut % (Auto) 75.9 H Lymph % (Auto) 15.9 L Saline % (Auto) 6.9 Eos % (Auto) 0.7 L Baso % (Auto) 0.6 Neut # (Auto) 9500 H Lymph # (Auto) 2000 Saline # (Auto) 900 Eos # (Auto) 100 Baso # (Auto) 100 Sodium 136 L Potassium 4.2 Chloride 107 Carbon Dioxide 27 BUN 13 Creatinine 0.70 Estimated GFR > 60 BUN/Creatinine Ratio 18.6 Glucose 81 Calcium 8.0 L Total Bilirubin 0.3 AST 29 ALT 16 Alkaline Phosphatase 92 Total Protein 5.6 L Albumin 2.9 L Globulin 2.7 Albumin/Globulin Ratio 1.1 Assessment & Plan Assessment and Plan (1) Status post section: Status: Acute (2) intolerance to labor, delivered, current hospitalization: Status: Acute (3) 38 weeks gestation of : Status: Acute (4) Gestational hypertension: Status: Acute Plan day: 1 plan OB: routine postop care Comments: Doing well . Blood pressure is coming down and preeclampsia labs are again normal. is attempting to breast-feed also with SNS and doing well. Anticipate discharge home tomorrow. Time Spent With Patient Time: Total time spent is greater than 50% in coordination of care (as documented) at patient's floor/unit and/or counseling patient: Time with patient: 15-24 minutes
[2021-12-08] MEDS: DOCUSATE 100 MG CAPSULE 200 MG PO (20:32)
[2021-12-08] MEDS: NIFEdipine 10 MG CAPSULE PO (21:09)
[2021-12-08 22:31] LABS: Aspartate Aminotransferase 34 IU/L (14-36); BUN Creatinine Ratio 19.7 (6-22); Blood Urea Nitrogen 15 mg/dL (7-17); Estimated Glomerular Filt Rate > 60 mL/min (>60); Uric Acid 5.6 mg/dL (2.5-6.2)
[2021-12-08 22:32] LABS: Add Manual Diff / Slide Review NO; Basophils Absolute Auto 100 /uL (0-100); Basophils Percent Auto 0.6 % (0-2); Eosinophils Absolute Auto 100 /uL (0-450); Eosinophils Percent Auto 1.2 % (2-4); Hematocrit 34.9 % (36-46); Lymphocytes Absolute Auto 2300 /uL (1100-4500); Lymphocytes Percent Auto 18.6 % (25-40); Mean Corpuscular HGB Conc 34.3 % (30-36); Mean Corpuscular Hemoglobin 30.8 PG (26-34); Mean Corpuscular Volume 89.8 fL (80-100); Monocytes Absolute Auto 800 /uL (0-900); Monocytes Percent Auto 6.9 % (3-14); Neutrophils Absolute Auto 8900 /uL (1500-7000); Neutrophils Percent Auto 72.7 % (50-75); Platelet Count 177 X10^3/uL (150-400); Red Blood Cell Count 3.89 X10^6/uL (4.0-5.2); Red Cell Distribution Width 12.9 % (11.6-14.8); White Blood Cell Count 12.2 X10^3/uL (4.5-11.0)
[2021-12-09] MEDS: ACETAMINOPHEN 325 MG TABLET 650 MG PO ×4 (02:33→23:49)
[2021-12-09] MEDS: IBUPROFEN 600 MG TABLET PO ×4 (02:33→23:49)
[2021-12-09] MEDS: OXYCODONE IR 5 MG TABLET PO ×3 (02:34→17:22)
[2021-12-09 02:41] VITALS: BP 137/98; PULSE 105; RESP 16; TEMP 36.7
--- NOTE | 2021-12-09 07:44 | P.DS_ITS ---
Discharge Providers Provider Date of admission: 12/05/21 17:50 Discharge Date: 12/09/21 Primary care physician: JACLYN Jones Consults: 12/07/21 02:36 Consult to Business Continuity Specialist Routine Comment: Discharge provider: Ana Rudolph DO Summary Hospital Course Date Patient Seen: 12/09/21 Time Patient Seen: 07:44 Diagnoses: 38 weeks of Status post section intolerance of labor Peripartum Data Infant Delivery Method: Section Discharge Diagnosis (1) Status post section: Status: Acute (2) intolerance to labor, delivered, current hospitalization: Status: Acute (3) 38 weeks gestation of : Status: Acute (4) Gestational hypertension: Status: Acute Time Spent with Patient Time attestation: Total time spent providing and/or coordinating discharge services: Objective Labs Result Diagrams: 12/08/21 22:13 12/08/21 22:13 Labs: Laboratory Results - last 24 hr 12/08/21 05 22:13 22:13 WBC 12.2 H RBC 3.89 L Hgb 12.0 Hct 34.9 L MCV 89.8 MCH 30.8 MCHC 34.3 RDW 12.9 Plt Count 177 Neut % (Auto) 72.7 Lymph % (Auto) 18.6 L [place] % (Auto) 6.9 Eos % (Auto) 1.2 L Baso % (Auto) 0.6 Neut # (Auto) 8900 H Lymph # (Auto) 2300 [place] # (Auto) 800 Eos # (Auto) 100 Baso # (Auto) 100 BUN 15 Creatinine 0.76 Estimated GFR > 60 BUN/Creatinine Ratio 19.7 Uric Acid 5.6 AST 34 Exam Vital Signs (past 8 hours): Oxygen Delivery Method Room Air Oxygen Flow Rate 0 Discharge Plan Discharge Plan Patient Disposition: Home Discharge orders & Medications Prescriptions: No Action (DME) Double Electric Breast Pump and supplies See Rx Instructions .ROUTE .MEDSUPPLY Qty: 1 0RF Rx Instructions: Use daily as directed (DME) miscellaneous medical supply Misc See Rx Instructions .Route Qty: 1 0RF Rx Instructions: Use daily as needed for back pain prenat.vits,moisés,cpr-yvyz-visgu Tablet 1 tab PO DAILY 0RF Follow up/Referrals: Melisa Boyle ARNP [Primary Care Provider] - Ana Rudolph DO [Physician] - 12/12/21 4:00 pm Visit Report/Discharge Packet Visit Report Forms: Patient Portal/API, Stroke Signs & Symptoms Discharge Data Primary Care Provider: Melisa Boyle
[2021-12-09] MEDS: NIFEdipine 30 MG TAB ER PO ×2 (08:07→10:17)
[2021-12-09] MEDS: PRENATAL VIT,CALC/IRON/FOLIC 1 TABLET 1 TAB PO (09:18)
[2021-12-09] MEDS: DOCUSATE 100 MG CAPSULE 200 MG PO (09:18)
[2021-12-09 12:45] LABS: Add Manual Diff / Slide Review NO; Basophils Absolute Auto 0 /uL (0-100); Basophils Percent Auto 0.4 % (0-2); Eosinophils Absolute Auto 100 /uL (0-450); Eosinophils Percent Auto 1.4 % (2-4); Hematocrit 35.7 % (36-46); Hemoglobin 12.2 g/dL (12.0-16.0); Lymphocytes Absolute Auto 1500 /uL (1100-4500); Lymphocytes Percent Auto 15.3 % (25-40); Mean Corpuscular HGB Conc 34.3 % (30-36); Mean Corpuscular Hemoglobin 30.9 PG (26-34); Mean Corpuscular Volume 90.2 fL (80-100); Monocytes Absolute Auto 500 /uL (0-900); Monocytes Percent Auto 4.7 % (3-14); Neutrophils Absolute Auto 7800 /uL (1500-7000); Neutrophils Percent Auto 78.2 % (50-75); Platelet Count 194 X10^3/uL (150-400); Red Blood Cell Count 3.96 X10^6/uL (4.0-5.2); Red Cell Distribution Width 12.9 % (11.6-14.8); White Blood Cell Count 9.9 X10^3/uL (4.5-11.0)
[2021-12-09 12:59] LABS: Alanine Aminotransferase 19 IU/L (<35); Albumin 3.6 g/dL (3.5-5.0); Albumin Globulin Ratio 1.1 (1.0-2.8); Alkaline Phosphatase 95 U/L (38-126); Aspartate Aminotransferase 33 IU/L (14-36); BUN Creatinine Ratio 18.6 (6-22); Bilirubin Total 0.3 mg/dL (0.2-1.3); Blood Urea Nitrogen 13 mg/dL (7-17); Calcium 9.1 mg/dL (8.4-10.2); Carbon Dioxide 27 mmol/L (22-32); Chloride 105 mmol/L (98-107); Estimated Glomerular Filt Rate > 60 mL/min (>60); Globulin 3.3 g/dL (1.7-4.1); Glucose 91 mg/dL (70-100); HEMOLYSIS < 15 (0-50); Potassium 4.1 mmol/L (3.4-5.1); Sodium 136 mmol/L (137-145); Total Protein 6.9 g/dL (6.3-8.2)
--- NOTE | 2021-12-09 13:02 | P.PNOB_ITS ---
Subjective - OB Subjective Patient comments: no complaints, pain well controlled, tolerating diet and flatus present baby status: doing well Narrative: Overnight blood pressure spiked to severe range. She was given a dose short- acting nifedipine 10 mg with improvement in blood pressure. Labs were also repeated and normal. This morning she denies headaches, vision changes or right upper quadrant pain. Trace edema continues. Overall she feels well and would like to go home. Pain is well controlled and vaginal bleeding is light. Infant is also doing well. Date Patient Seen: 12/09/21 Time Patient Seen: 08:00 Exam Vital Signs (past 8 hours): Oxygen Delivery Method Room Air Oxygen Flow Rate 0 Temperature 97.8? blood pressure 148/88 heart rate 103 respirations 17 Narrative Exam Narrative: General:? Sitting up in bed, NAD HEENT: NCAT, EOMI, moist oral mucosa CV: Regular rate and rhythm, no murmurs, rubs or gallops Lungs: CTAB, no wheezes, rales, or rhonchi Abdomen:? Aquacel dressing intact with minimal drainage.? Soft, nontender; bowel tones active; uterus firm 1 cm below umbilicus. Extremities: Warm, trace edema bilaterally Neuro:? 2+ patellar reflexes Objective Labs Result Diagrams: 12/09/21 12:30 12/09/21 12:30 Labs: Laboratory Results - last 24 hr 12/08/21 12/08/21 12/09/21 22:13 22:13 12:30 WBC 12.2 H 9.9 RBC 3.89 L 3.96 L Hgb 12.0 12.2 Hct 34.9 L 35.7 L MCV 89.8 90.2 MCH 30.8 30.9 MCHC 34.3 34.3 RDW 12.9 12.9 Plt Count 177 194 Neut % (Auto) 72.7 78.2 H Lymph % (Auto) 18.6 L 15.3 L [place] % (Auto) 6.9 4.7 Eos % (Auto) 1.2 L 1.4 L Baso % (Auto) 0.6 0.4 Neut # (Auto) 8900 H 7800 H Lymph # (Auto) 2300 1500 [place] # (Auto) 800 500 Eos # (Auto) 100 100 Baso # (Auto) 100 0 Sodium Potassium Chloride Carbon Dioxide BUN 15 Creatinine 0.76 Estimated GFR > 60 BUN/Creatinine Ratio 19.7 Glucose Uric Acid 5.6 Calcium Total Bilirubin AST 34 ALT Alkaline Phosphatase Total Protein Albumin Globulin Albumin/Globulin Ratio 12/09/21 12:30 WBC RBC Hgb Hct MCV MCH MCHC RDW Plt Count Neut % (Auto) Lymph % (Auto) [place] % (Auto) Eos % (Auto) Baso % (Auto) Neut # (Auto) Lymph # (Auto) [place] # (Auto) Eos # (Auto) Baso # (Auto) Sodium 136 L Potassium 4.1 Chloride 105 Carbon Dioxide 27 BUN 13 Creatinine 0.70 Estimated GFR > 60 BUN/Creatinine Ratio 18.6 Glucose 91 Uric Acid Calcium 9.1 Total Bilirubin 0.3 AST 33 ALT 19 Alkaline Phosphatase 95 Total Protein 6.9 Albumin 3.6 Globulin 3.3 Albumin/Globulin Ratio 1.1 Assessment & Plan Assessment and Plan (1) Status post section: Status: Acute (2) intolerance to labor, delivered, current hospitalization: Status: Acute (3) 38 weeks gestation of : Status: Acute (4) Gestational hypertension: Status: Acute Plan day: 2 Comments: 26-year-old status post primary section for intolerance of labor. She was induced for gestational hypertension and IUGR. Blood pressures had been reasonably well controlled without medication until last night. This morning blood pressures were again severe range, 160s over 100. She received 1 dose of nifedipine ER 30 mg without significant improvement. She was given a second dose of nifedipine at 30 mg ER with improvement to the 150s over 80s. Labs were repeated and again normal. Patient remains asymptomatic. Case was discussed with Dr. Salas, on-call MENTAL HEALTH COORDINATOR. She recommended initiation of labetalol 200 mg b.i.d. in addition to nifedipine. Patient will remain in the hospital another night for blood pressure stabilization. Will plan to repeat labs in the morning. If blood pressure is well controlled tomorrow, may discharge home with home monitoring and close follow-up in clinic. Time Spent With Patient Time: Total time spent is greater than 50% in coordination of care (as documented) at patient's floor/unit and/or counseling patient: Time with patient: 15-24 minutes
[2021-12-09] MEDS: LABETALOL 100 MG TABLET 200 MG PO ×2 (13:20→20:34)
[2021-12-09 20:34] VITALS: BP 151/95; PULSE 100
[2021-12-10] MEDS: ACETAMINOPHEN 325 MG TABLET 650 MG PO ×2 (05:24→11:36)
[2021-12-10] MEDS: IBUPROFEN 600 MG TABLET PO ×2 (05:25→11:36)
[2021-12-10 08:03] VITALS: BP 150/92; PULSE 105
[2021-12-10] MEDS: LABETALOL 100 MG TABLET 200 MG PO (08:03)
[2021-12-10] MEDS: NIFEdipine 30 MG TAB ER PO ×2 (08:03→09:03)
[2021-12-10] MEDS: DOCUSATE 100 MG CAPSULE 200 MG PO (08:03)
[2021-12-10] MEDS: PRENATAL VIT,CALC/IRON/FOLIC 1 TABLET 1 TAB PO (08:05)
--- NOTE | 2021-12-10 08:28 | P.DS_ITS ---
Discharge Providers Provider Date of admission: 12/05/21 17:50 Discharge Date: 12/10/21 Primary care physician: JACLYN Jones Consults: 12/07/21 02:36 Consult to [employer]ice Routine Comment: Discharge provider: Ana Rudolph DO Summary Hospital Course Date Patient Seen: 12/10/21 Time Patient Seen: 08:29 Diagnoses: 38 weeks of intolerance of Status post section Gestational hypertension Intrauterine growth restriction Hospital Course: 26-year-old G1 now P1 after primary section at 38 weeks gestation for intolerance labor and arrest of labor. She received Cervidil then progressed into labor spontaneously however labor arrested despite artificial rupture of membranes. She also went on to have recurrent late decelerations which were intermittently responsive to fluids and position change. Pitocin was begun for augmentation however not tolerated and the decision made to proceed with primary section. She delivered a vigorous male infant weighing at 2342 g with Apgars of 9 and 9. course was uncomplicated by worsening hypertension. Labs remained stable multiple times without concern for preeclampsia. She was without symptoms of headache, vision changes or abdominal pain. Reflexes were brisk on admission but returned to normal prior to discharge. Blood pressure was ultimately controlled with nifedipine ER 60 mg daily and labetalol 200 mg b.i.d.. She was counseled to monitor blood pressures at home and call if persistently above 150/100. She also is aware to call for symptoms of preeclampsia. Patient will follow-up in clinic in 2 days for blood pressure check. Call for fevers, severe pain or bleeding through a pad an hour or above mention preeclampsia symptoms. Peripartum Data Infant Delivery Method: Section 1: Gender: Male Disposition of : home Discharge Diagnosis (1) Status post section: Status: Acute (2) intolerance to labor, delivered, current hospitalization: Status: Acute (3) 38 weeks gestation of : Status: Acute (4) Gestational hypertension: Status: Acute Status at Discharge Cognitive/behavioral status at discharge: at baseline, oriented Functional status at discharge: independent ambulation Overall status at discharge: patient is progressing back to baseline Time Spent with Patient Time attestation: Total time spent providing and/or coordinating discharge services: Time spent: Less than 30 minutes Objective Labs Result Diagrams: 12/09/21 12:30 12/09/21 12:30 Labs: Laboratory Results - last 24 hr 12/09/21 12/09/21 12:30 12:30 WBC 9.9 RBC 3.96 L Hgb 12.2 Hct 35.7 L MCV 90.2 MCH 30.9 MCHC 34.3 RDW 12.9 Plt Count 194 Neut % (Auto) 78.2 H Lymph % (Auto) 15.3 L [place] % (Auto) 4.7 Eos % (Auto) 1.4 L Baso % (Auto) 0.4 Neut # (Auto) 7800 H Lymph # (Auto) 1500 [place] # (Auto) 500 Eos # (Auto) 100 Baso # (Auto) 0 Sodium 136 L Potassium 4.1 Chloride 105 Carbon Dioxide 27 BUN 13 Creatinine 0.70 Estimated GFR > 60 BUN/Creatinine Ratio 18.6 Glucose 91 Calcium 9.1 Total Bilirubin 0.3 AST 33 ALT 19 Alkaline Phosphatase 95 Total Protein 6.9 Albumin 3.6 Globulin 3.3 Albumin/Globulin Ratio 1.1 Exam Vital Signs (past 8 hours): Temperature 97.7? blood pressure 148/92 heart rate 70 respirations 16 Narrative Exam Narrative: General: Awake and alert, no acute distress. HEENT: NCAT, EOMI, moist oral mucosa CV: Regular rate and rhythm, no murmurs, rubs or gallops Lungs: CTAB, no wheezes, rales, or rhonchi Abdomen: Aquacel dressing intact with minimal drainage Extremities: Warm, no edema bilaterally, 2+ pedal pulses bilaterally Discharge Plan Discharge Plan Patient Disposition: Home Discharge orders & Medications Prescriptions: New nifedipine 30 mg Tablet Extended Release 24 Hr 60 mg PO DAILY Qty: 60 0RF docusate sodium 100 mg Capsule 200 mg PO DAILY Qty: 30 0RF ibuprofen 600 mg Tablet 600 mg PO Q6H PRN (Reason: Fever/Mild Pain (1-3)) Qty: 30 0RF labetalol 100 mg Tablet 200 mg PO BID Qty: 60 0RF oxycodone 5 mg Tablet 5 mg PO Q4H PRN (Reason: Pain, Moderate (4-6)) Qty: 20 0RF Continued (DME) [employer] Electric Breast Pump and supplies See Rx Instructions .ROUTE .MEDSUPPLY Qty: 1 0RF Rx Instructions: Use daily as directed (DME) miscellaneous medical supply Misc See Rx Instructions .Route Qty: 1 0RF Rx Instructions: Use daily as needed for back pain prenat.vits,moisés,[id number] Tablet 1 tab PO DAILY 0RF Follow up/Referrals: Melisa Boyle, JACLYN [Primary Care Provider] - Ana Rudolph DO [Physician] - 12/12/21 4:00 pm Visit Report/Discharge Packet Visit Report Forms: Patient Portal/API, Stroke Signs & Symptoms Discharge Data Primary Care Provider: Melisa Boyle
[2021-12-10] MEDS: OXYCODONE IR 5 MG TABLET PO (09:55)
== END 2021-12-10 12:36 | disposition home or self-care (01) | DRG 786 ==
PROVIDERS: Obstetrics & Gynecology; Admitting Provider Family Medicine; PCP Nurse Practitioner; Referring Provider Family Medicine; Visit Provider Family Medicine
PROC: (CPT 59514; principal; 2021-12-07 00:45)
DX: O13.4 Gestational [pregnancy-induced] hypertension without significant proteinuria, complicating childbirth (principal); O41.1230 Chorioamnionitis, third trimester, not applicable or unspecified; O77.9 Labor and delivery complicated by fetal stress, unspecified; Z3A.38 38 weeks gestation of pregnancy; Z37.0 Single live birth; O36.5930 Maternal care for other known or suspected poor fetal growth, third trimester, not applicable or unspecified; O62.1 Secondary uterine inertia; Z20.822 Contact with and (suspected) exposure to COVID-19; O13.3 Gestational [pregnancy-induced] hypertension without significant proteinuria, third trimester; Z3A.37 37 weeks gestation of pregnancy
CPT/HCPCS: 01967; 01968; 36415; 59025; 59050; 59510; 59514; 76816; 80053; 82570; 84156; 84450; 84550; 85025; 86850; 86870; 86900; 86901; 87635; C9803; G0379; J0131; J0690; J1885; J2274; J2405; J2590